=== PATIENT | male | born 1970 | race Caucasian/White ===

== ENCOUNTER → 2019-07-01 14:53 | Outpatient (CLI) | payer BC, SELFPAY ==
--- NOTE | ~2019-07-01 | MR_ITS ---
EXAMINATION: MR shoulder RT wo con DATE: 07/01/2019 15:53 INDICATION: Complete tear of right rotator cuff. Right biceps tendinitis. Right shoulder pain. TECHNIQUE: Magnetic resonance imaging (MRI) of the right shoulder was performed without intravenous c ontrast. Sequences included axial PD-weighted FS FSE, coronal oblique PD-weighted FS FSE and T2-weigh ramon FS FSE, and sagittal oblique T2-weighted FS FSE and T1-weighted FSE. COMPARISON: None. FINDINGS: Coracoacromial arch: The acromion undersurface is curved in morphology (type II). There is severe acromioclavicular joint osteoarthritis including inferiorly directed osteophytes. There is mild subacromial/subdeltoid bursit is. Rotator cuff: There is moderate supraspinatus tendinopathy and mild infraspinatus tendinopathy. Teres minor tendon is normal. There is mild subscapularis tendinopathy. No tear. There is no asymmetric fatty atrophy of the rotator cuff muscle bellies. Biceps tendon and glenoid labrum: Biceps tendon is in bicipital groove. There is mild intra-articular biceps tendinopathy. There is flu id in the biceps tendon sheath out of proportion to the joint fluid, consistent with tenosynovitis. T here is a tear of superior labrum from 2:00 to 9:00 (SLAP tear). Fluid: There is no glenohumeral joint effusion. Bones/cartilage: Humeral head cartilage is normal. Glenoid cartilage is normal. IMPRESSION: 1. Moderate rotator cuff tendinopathy. No tear. 2. SLAP tear. 3. Severe acromioclavicular joint osteoarthritis. 4. Mild subacromial/subdeltoid bursitis. 5. Mild intra-articular biceps tendinopathy. Mild biceps tenosynovitis. Reviewed, dictated and finalized at location A. H CLASSER
== END ==
PROVIDERS: PCP Internal Medicine
DX: M75.121 Complete rotator cuff tear or rupture of right shoulder, not specified as traumatic (principal); M75.21 Bicipital tendinitis, right shoulder; M19.011 Primary osteoarthritis, right shoulder; M75.51 Bursitis of right shoulder; S43.431A Superior glenoid labrum lesion of right shoulder, initial encounter; X58.XXXA Exposure to other specified factors, initial encounter
CPT/HCPCS: 73221

== ENCOUNTER → 2021-04-21 09:12 | Outpatient (CLI) | payer BC, SELFPAY ==
--- NOTE | ~2021-04-21 | MR_ITS ---
EXAMINATION: MR shoulder RT wo con DATE: 04/21/2021 10:47 INDICATION: Right shoulder impingement syndrome TECHNIQUE: Magnetic resonance imaging (MRI) of the right shoulder was performed without intravenous c ontrast. Sequences included axial PD-weighted FS FSE, coronal oblique PD-weighted FS FSE, coronal obl ique T2-weighted FS FSE, sagittal PD-weighted FS FSE, and sagittal T1-weighted SE. COMPARISON: 07/01/2019 FINDINGS: Coracoacromial arch: The acromion undersurface is normally curved in morphology (type I-II) with interval acromioplasty al norma the anterolateral margin of the acromion with release of the acromial attachment of the coracoacr omial ligament. Severe acromioclavicular osteoarthritis with interval cheilectomy of the previously n oted large inferiorly directed osteophytes along both the acromial and clavicular sides of the joint space. Persistent subarticular cystic changes at the cephalad aspect of the lateral head of the clavi chester. Rotator cuff: Slight interval progression of still moderate supraspinatus and mild infraspinatus tendinopathy which remain without discrete tear. There is suggestion of tiny suture anchor tracks along the lateral mar gin of the greater tuberosity near the junction of the anterior and middle facets which suggests prio r rotator cuff repair. The teres minor tendon is normal. There is also been progression of now modera te subscapularis tendinopathy without discrete tear. Normal rotator cuff muscle bulk and signal. Biceps tendon, glenoid labrum and glenohumeral cartilage: The long head of the biceps tendon can be followed cephalad to the cephalad aspect of the intertuberc ular groove but with no discernible intra-articular portion of the tendon suggesting interval either tear, tenotomy or potentially tenodesis. Correlate with surgical history. Extensive labral tear begin fredis superiorly at the 11:00 position of the posterior superior labrum and extending along the bottle packing machine cleaner ior inferior labrum to the 5:00 position anteroinferiorly. There is suggestion of a suture anchor sit e for prior labral repair at the 3:00 position of the glenoid labrum. The intervening anteroinferior labrum from the 3:00-5:00 position appears thickened with amorphous increased signal consistent with degeneration without a well-defined tear plane. The previously seen linear tear at the anterosuperior labrum is not appreciated on the current study which may be due to interval repair or debridement. T here is mild partial-thickness cartilage loss with smooth chondral surface and without degenerative s ubchondral changes along the cephalad aspect of the glenoid and inferomedial aspect of the humeral he ad. Fluid: Physiologic amount of fluid in the glenohumeral joint and biceps tendon sheath. No loose osteochondra l bodies. Small amount of fluid in the subacromial/subdeltoid bursa consistent with mild bursitis. Bones: Bone alignment is normal. No fracture or pathologic marrow replacing process. IMPRESSION: 1. Postoperative changes at the right shoulder consistent with prior acromioplasty with suggestion of prior anterior labral repair, rotator cuff repair with suture anchors along the greater tuberosity a nd possible bicipital tenotomy versus tenodesis. Correlate with details of prior surgery. 2. New versus progression of a large labral tear of the posterior superior posterior to anteroinferio r labrum. 3. Progression of now moderate subscapularis and supraspinatus and mild infraspinatus tendinopathy wi thout discrete tears. 4. Mild subacromial/subdeltoid bursitis. 5. Severe chromic clavicular osteoarthritis with likely cheilectomy of prior inferiorly directed oste ophytes. Reviewed, dictated and finalized at location H. TS DIRECTOR IMPRESSION: 1. Postoperati
== END ==
PROVIDERS: PCP Internal Medicine; Visit Provider Internal Medicine
DX: M75.41 Impingement syndrome of right shoulder (principal); Z98.890 Other specified postprocedural states; S43.431A Superior glenoid labrum lesion of right shoulder, initial encounter; M75.81 Other shoulder lesions, right shoulder; M75.51 Bursitis of right shoulder; M19.011 Primary osteoarthritis, right shoulder
CPT/HCPCS: 73221

== ENCOUNTER 2021-09-06 10:58 | Outpatient (CLI) | payer BC, SELFPAY ==
--- NOTE | ~2021-09-06 | CT_ITS ---
EXAMINATION: CT diagnostic chest w con DATE: 09/06/2021 11:25 INDICATION: Pulmonary nodule. History of smoking. TECHNIQUE: Computed tomography (CT) of the chest was performed with 75 CC Omnipaque 300 intravenous c ontrast. Automated exposure control and iterative reconstruction technique were employed. Exam dose: 793.59 mGy-cm total exam DLP. COMPARISON: 10/12/2011 PA and lateral chest FINDINGS: Normal heart size. No hilar or mediastinal mass lesion or lymphadenopathy. No thoracic aortic aneurys m or dissection. No apparent pulmonary embolism. No pericardial or pleural effusion. Mild discoid atelectasis or scarring of the lingula. No pulmonary infiltrate or consolidation. No amrita picious pulmonary mass lesion. There is fatty infiltration of the liver with minimal pericholecystic sparing. Included portions of the adrenal glands and upper abdominal structures are unremarkable. Multiple old healed left rib fractures. Degenerative change at the acromioclavicular and glenohumeral joints. Degenerative spurring of the thoracic spine. No suspicious osteolytic or osteoblastic lesions are noted. IMPRESSION: Mild discoid atelectasis or scarring of lingula; no pulmonary infiltrate or consolidatio n or suspicious pulmonary mass lesion Hepatic steatosis Reviewed, dictated and finalized at Location A. Reviewed, dictated and finalized at location B. IMPRESSION: Mild discoid atelectasis or scarring of lingula; no pulmonary infi ltrate or consolidation or suspicious pulmonary mass lesion Hepatic steatosis
[2021-09-06 11:15] LABS: Estimated Glomerular Filt Rate > 60
== END 2021-09-06 10:59 ==
PROVIDERS: PCP Physician Assistant Medical; Visit Provider Physician Assistant Medical
DX: R91.1 Solitary pulmonary nodule (principal); Z72.0 Tobacco use; K76.0 Fatty (change of) liver, not elsewhere classified
CPT/HCPCS: 71260; Q9967

== ENCOUNTER 2021-10-01 00:34 | Day surgery (SDC) | payer BC, SELFPAY ==
[2021-09-16 10:16] VITALS: BMI 40.6
[2021-10-01 06:48] VITALS: BP 153/88; PULSE 83; RESP 20; TEMP 36.2; O2SAT 96
[2021-10-01] MEDS: LACTATED RINGERS 1,000 ML 150 ML IV CONT (07:00)
[2021-10-01 07:09] LABS: Glucose Point of Care 188 mg/dl (65-105)
--- NOTE | 2021-10-01 07:45 | WPDGICN ---
Assessment and Plan Assessment and plan (1) Encounter for screening colonoscopy: Code(s): Z12.11 - Encounter for screening for malignant neoplasm of colon Status: Acute Assessment and Plan: Patient presents today for screening colonoscopy. He appears to be at average risk for colon polyps. GI Consult Note Consult date/time: 10/01/21 07:45 Reason for consult: Neoplasia screening. HPI: Taye Ellis is a 50 year old male Referred for neoplasia screening. Patient's current weight appetite and bowel movements are normal. He denies abdominal pain. Patient has had no bleeding. Family history is noncontributory. He has had previous orthopedic surgeries. Review of Systems Review of Systems: Noncontributory review of systems. [facility] Family History Family History (Updated 08/15/16 @ 13:50 by DOCTOR UNKNOWN) Other Diabetes mellitus Family history of allergic disorder Family history of malignant neoplasm Hypertension Social History Social History Smoking packs per day: 1.5 Smoking cigarettes per day: 30.0 Years smoked: 16 Smoking pack-years: 24.00 Smoking status: Former smoker Tobacco type: cigarettes Second hand tobacco smoke exposure: No Alcohol intake: current Living arrangements: with family Meds Home Medications and Allergies Home Medications Medication Instructions Recorded Confirmed Type glimepiride 4 mg tablet 4 mg PO DAILY 09/16/21 09/16/21 History levothyroxine 175 mcg tablet 175 mcg PO DAILY 09/16/21 09/16/21 History metformin 1,000 mg tablet 1,000 mg PO BID 09/16/21 09/16/21 History Allergies Allergy/AdvReac Type Severity Reaction Status Date / Time codeine Allergy Unknown Itching Verified 10/01/21 06:47 hydrocodone Allergy Unknown Itching Verified 10/01/21 06:47 oxycodone AdvReac Unknown ITCHING Verified 10/01/21 06:47 Vital Signs Vital Signs - 24 hr 10/01/21 06:48 Temperature 97.2 F L Pulse Rate 83 Respiratory Rate 20 Blood Pressure 153/88 H Pulse Oximetry 96 Oxygen Delivery Room Air Exam Narrative: Physical exam reveals patient be alert. Vital signs stable. HEENT exam is unremarkable. Patient is anicteric. Lungs are clear to auscultation and percussion. Heart is without murmur or extra sounds. Abdomen is obese. Bowel sounds are present soft nontender with no hepatosplenomegaly. Digital external rectal exam is normal.
--- NOTE | 2021-10-01 07:57 | WPDANESEPPF ---
Anes - Initial Pre Proc Eval Procedure: Operation Date: 10/01/21 08:00 Proposed Procedures p Screening Colonoscopy - Behzad Gillespie MD Date/Time: 10/01/21 07:57 Surgeon: Behzad Gillespie MD Pre Op Diagnosis: neoplasm screening Patient Data Age: 50 Gender: M Height: 1.91 m Weight: 150.4 kg Last Vital Signs Temp 97.2 F L 10/01/21 06:48 Pulse 83 10/01/21 06:48 Resp 20 10/01/21 06:48 BP 153/88 H 10/01/21 06:48 Pulse Ox 96 10/01/21 06:48 O2 Del Method Room Air 10/01/21 06:48 Allergies Allergy/AdvReac Type Severity Reaction Status Date / Time codeine Allergy Unknown Itching Verified 10/01/21 06:47 hydrocodone Allergy Unknown Itching Verified 10/01/21 06:47 oxycodone AdvReac Unknown ITCHING Verified 10/01/21 06:47 Home Medications Medication Instructions Recorded Confirmed Type glimepiride 4 mg tablet 4 mg PO DAILY 09/16/21 09/16/21 History levothyroxine 175 mcg tablet 175 mcg PO DAILY 09/16/21 09/16/21 History metformin 1,000 mg tablet 1,000 mg PO BID 09/16/21 09/16/21 History Laboratory Tests 10/01/21 07:03 POC Capillary Glucose 188 mg/dl H mg/dl (65-105) Patient hx anesthesia problems: none Family hx anesthesia problems: none Results Review: All pre-operative results and documents have been reviewed as part of the pre-operative evaluation. [facility] Family History Family History (Updated 08/15/16 @ 13:50 by DOCTOR UNKNOWN) Other Diabetes mellitus Family history of allergic disorder Family history of malignant neoplasm Hypertension Social History Social History Smoking packs per day: 1.5 Smoking cigarettes per day: 30.0 Years smoked: 16 Smoking pack-years: 24.00 Smoking status: Former smoker Tobacco type: cigarettes Second hand tobacco smoke exposure: No Alcohol intake: current Living arrangements: with family Anes - Eval Final PreProcedure Day of Procedure 10/01/21 07:57 Patient weight: morbidly obese Heart: regular rate and rhythm Lungs: clear to auscultation Airway: Mallampati scale class III Neurological: alert and oriented Last oral intake: >/= 8 hours ASA classification: III Emergent: no Anesthetic plan: proceed Anesthesia type and monitoring: general GIVS and standard monitoring Results Review: All pre-operative results and documents have been reviewed as part of the pre-operative evaluation. Informed Consent: The patient's anesthetic plan and its attendant risks and benefits were discussed with the patient/family/POA. Questions were solicited and answers provided to the satisfaction of the patient/family/POA.
[2021-10-01 08:18] VITALS: BP 134/84; PULSE 74; RESP 17; O2SAT 98
[2021-10-01 08:28] VITALS: BP 126/63; PULSE 75; RESP 18; O2SAT 98
[2021-10-01 08:38] VITALS: BP 131/94; PULSE 80; RESP 17; O2SAT 98
== END 2021-10-01 08:47 | disposition home or self-care (01) ==
PROVIDERS: PCP Physician Assistant Medical; Visit Provider Internal Medicine Gastroenterology
PROC: 0DJD8ZZ Inspection of Lower Intestinal Tract, Via Natural or Artificial Opening Endoscopic (ICD-10-PCS; CPT 45378; principal; 2021-10-01 08:00)
DX: Z12.11 Encounter for screening for malignant neoplasm of colon (principal); K57.32 Diverticulitis of large intestine without perforation or abscess without bleeding; Z87.891 Personal history of nicotine dependence; E66.01 Morbid (severe) obesity due to excess calories; Z68.41 Body mass index [BMI] 40.0-44.9, adult; E03.9 Hypothyroidism, unspecified; Z79.84 Long term (current) use of oral hypoglycemic drugs
CPT/HCPCS: 45378; 82948; J2704; J7120

== ENCOUNTER 2022-01-10 17:02 | Outpatient (CLI) | payer BC, SELFPAY ==
--- NOTE | ~2022-01-10 | MR_ITS ---
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 Sequences included coronal PD-weighted FSE, coronal PD-weighted FS FSE, sagittal T2-weighted FSE , sagittal PD-weighted FS FSE and axial PD weighted fat saturated FSE. COMPARISON: 01/17/2017 FINDINGS: Medial compartment: Unchanged longitudinal horizontal tear extending to the inferior articular surface near the free edge of the body and posterior horn of the medial meniscus. Shallow chondral ulceration along the anterio r weightbearing medial femoral condyle. Deeper fissuring without degenerative subchondral changes santiago ng the lateral side of the central weightbearing medial femoral condyle. Lateral compartment: Again seen is a discoid lateral meniscus without discrete tear. Articular cartilage is normal. Patellofemoral compartment: Shallow chondral fissuring at the cephalad aspect of the lateral patellar facet. Trochlear cartilage is normal. Ligaments and tendons: Anterior and posterior cruciate ligaments are normal. The medial collateral ligament and fibular maria esther ateral ligament complex are normal. No significant change in enthesopathy with small enthesophytes at the patellar and anterior tibial tubercle attachment of the distal quadriceps and distal patellar te ndons and without enthesophyte at the patellar insertion of the proximal patellar tendon. The visuali zed medial and lateral hamstring tendons as well as the iliotibial band are normal. Fluid: Physiologic amount of fluid in the joint space. No intra-articular loose osteochondral bodies identif ied. There are a few small loose osteochondral bodies within the popliteal recess. There is a large m ultiloculated ganglion cyst which appears to arise from the popliteal recess and extends caudally bet ween the proximal metaphyseal of the metadiaphyseal regions of the tibia and fibula. Osseous/other: Normal marrow signal. No fracture or pathologic marrow replacing process. Medial plical band which ex tends across the cephalad aspect of the medial rim of the medial trochlea. IMPRESSION: 1. Persistent longitudinal horizontal tear of the body and posterior horn of the medial meniscus. 2. Mild osteoarthritis with regions of moderate grade chondromalacia along the weightbearing medial f emoral condyle and at the lateral patellar facet. 3. 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 4. Large multilobulated ganglion cyst extending caudally from the popliteal recess. 5. Chronic mild enthesopathy of the quadriceps and patellar tendons. Reviewed, dictated and finalized at location A. IMPRESSION: 1. Persistent longitudinal horizontal tear of the body and posterior horn of th e medial meniscus. 2. Mild osteoarthritis with regions of moderate grade chondromalacia along the weightbearing medial femoral condyle and at the lateral patellar facet. 3. 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 4. Large multilobulated ganglion cyst extending caudally from the popliteal rec ess. 5. Chronic mild enthesopathy of the quadriceps and patellar tendons.
== END 2022-01-10 17:03 ==
PROVIDERS: PCP Internal Medicine; Visit Provider Orthopaedic Surgery
DX: M17.12 Unilateral primary osteoarthritis, left knee (principal); M71.21 Synovial cyst of popliteal space [Baker], right knee; S83.242A Other tear of medial meniscus, current injury, left knee, initial encounter; X58.XXXA Exposure to other specified factors, initial encounter
CPT/HCPCS: 73721

== ENCOUNTER → 2022-08-11 09:14 | Outpatient (CLI) | payer BC, SELFPAY ==
--- NOTE | ~2022-08-11 | CT_ITS ---
Clinical Indication: Lump in the left axilla CT Scan of the Chest with Contrast: Technique: Contiguous sections were acquired throughout the chest after intravenous administration of 75 cc of Omnipaque 350. Dose reduction technique was used on this scan by utilizing automated exposu re control and iterative reconstruction technique. The dose-length product (DLP) was 792.23 mGy-cm. COMPARISON: 09/06/2021 Findings: There is no evidence of any significant mediastinal, hilar or axillary lymphadenopathy. Mediastinal s oft tissues and vascular structures are unremarkable. There is no evidence of pleural or pericardial effusion. The lungs are clear. No pulmonary nodules or infiltrates are noted. Images through the upper abdomen reveal suspected diffuse fatty infiltration of the liver. Impression: No abnormal mass lesion seen in left axilla. Clear lungs. Probable fatty infiltration of liver. Reviewed, dictated and finalized at location . Impression: No abnormal mass lesion seen in left axilla. Clear lungs. Probable fatty infiltration of liver.
--- NOTE | ~2022-08-11 | MR_ITS ---
EXAMINATION: MR wrist RT wo con DATE: 08/11/2022 10:16 INDICATION: Right wrist pain. TECHNIQUE: Magnetic resonance imaging (MRI) of the wrist was performed without intravenous contrast. COMPARISON: Right wrist radiographs 07/19/2022 FINDINGS: Intrinsic ligaments: There are changes of prior sprains of scapholunate and lunotriquetral ligaments characterized by incr eased signal intensity. No full-thickness tear. Triangular fibrocartilage complex (TFCC): There is a partial tear of the proximal surface of triangular fibrocartilage. Extensor wrist: The extensor tendons are normal. Flexor wrist: The flexor tendons are normal. Median nerve is normal. Guyon's canal: The ulnar nerve is normal. Bones/other: Bone alignment is normal. No fracture. There is edema-like marrow signal intensity in lunate. There i s a 6 mm subchondral cyst in the distal radius at the lunate fossa. There is mild osteoarthritis of t riscaphe joint and first carpometacarpal joint. There is a 7 x 3 x 11 mm ganglion cyst palmar to radi al styloid. IMPRESSION: 1. Edema-like marrow signal intensity in lunate, which may be secondary to osteoarthritis, stress vishal ction, or osteonecrosis. 2. Mild polyarticular osteoarthritis. 3. Ganglion cyst palmar to radial styloid. Reviewed, dictated and finalized at location A. IMPRESSION: 1. Edema-like marrow signal intensity in lunate, which may be secondary to oste oarthritis, stress reaction, or osteonecrosis. 2. Mild polyarticular osteoarthritis. 3. Ganglion cyst palmar to radial styloid.
[2022-08-11 10:41] LABS: Estimated Glomerular Filt Rate > 60
== END ==
PROVIDERS: PCP Internal Medicine; Visit Provider Nurse Practitioner Family
DX: R22.30 Localized swelling, mass and lump, unspecified upper limb (principal); M67.431 Ganglion, right wrist; M15.9 Polyosteoarthritis, unspecified
CPT/HCPCS: 71260; 73221; Q9967

== ENCOUNTER 2022-11-21 10:25 | Outpatient (CLI) | payer BC, SELFPAY ==
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
== END 2022-11-21 10:26 ==
LOC: GOSHIMG 10:26
PROVIDERS: PCP Physician Assistant Medical; Visit Provider Nurse Practitioner Family
DX: R29.898 Other symptoms and signs involving the musculoskeletal system (principal); M19.011 Primary osteoarthritis, right shoulder; M75.101 Unspecified rotator cuff tear or rupture of right shoulder, not specified as traumatic
CPT/HCPCS: 73221

== ENCOUNTER 2023-03-15 12:11 | Outpatient (CLI) | payer BC, SELFPAY ==
--- NOTE | ~2023-03-15 | CT_ITS ---
EXAMINATION: CTA chest PE protocol DATE: 03/15/2023 12:54 INDICATION: Other forms of dyspnea. Chest pain. TECHNIQUE: Computed tomography angiography (CTA) of the chest was performed with 100 mL Omnipaque-350 intravenous contrast timed to evaluate the pulmonary arteries. Coronal maximum intensity projection 3D-reconstructions were created by the technologist. Automated exposure control and iterative reconst ruction technique were employed. The dose-length product was 1896.10 mGy-cm. COMPARISON: Chest CT 08/11/2022 FINDINGS: There is mild atelectasis bilaterally. No pleural effusion. The heart size is normal. No pe ricardial effusion. There is no pulmonary embolus. There is mild thoracic spondylosis. IMPRESSION: 1. No pulmonary embolus. Sensitivity is mildly decreased by motion artifact. Reviewed, dictated and finalized at location A. [employer]
[2023-03-15 12:46] LABS: Estimated Glomerular Filt Rate > 60
[2023-03-15 12:52] LABS: Basophils Absolute Auto 0.1 K/mm3 (0.0-0.1); Basophils Percent Auto 1.4 % (0.2-1.2); Eosinophils Absolute Auto 0.3 K/mm3 (0-0.3); Hematocrit 48.4 % (42.0-52.0); Hemoglobin 15.6 g/dL (14.0-18.0); Immature Granulocyte Absolute 0.02 K/mm3 (0.00-0.031); Immature Granulocyte Percent A 0.3 % (0-0.5); Lymphocytes Absolute Auto 2.07 K/mm3 (0.9-3.2); Lymphocytes Percent Auto 32.4 % (18.3-44.2); Mean Corpuscular HGB Conc 32.2 g/dl (32-36); Mean Corpuscular Hemoglobin 27.5 pg (26-34); Mean Corpuscular Volume 85.4 fl (80-100); Mean Platelet Volume 9.5 fl (7.4-10.4); Monocytes Absolute Auto 0.5 K/mm3 (0.1-0.6); Monocytes Percent Auto 8.3 % (2.6-8.5); Neutrophils Absolute Auto 3.4 K/mm3 (1.3-6.7); Neutrophils Percent Auto 52.6 % (45.5-73.1); Platelet Count Result 210 k/mm3 (150-375); Red Blood Count 5.67 M/mm3 (4.6-6.20); Red Cell Distribution Width 12.9 % (11.5-14.5); White Blood Count 6.4 K/mm3 (4.5-10.0)
[2023-03-15 13:03] LABS: Alanine Aminotransferase 53 U/L (6-50); Albumin Level 4.5 g/dL (3.5-5.1); Alkaline Phosphatase 58 U/L (38-126); Anion Gap 12 mmol/L (8-16); Aspartate Amino Transferase 48 U/L (17-59); Bilirubin,Total 0.7 mg/dL (0.2-1.3); Blood Urea Nitrogen 16 mg/dL (9-20); Calcium 9.3 mg/dL (8.4-10.2); Carbon Dioxide 25 mmol/L (22-30); Chloride 103 mmol/L (98-107); Estimated Glomerular Filt Rate > 60; Glucose 192 mg/dL (65-110); Sodium 140 mmol/L (137-145)
[2023-03-15 13:11] LABS: D Dimer 0.34 ug/mL (<0.48)
[2023-03-15 13:13] LABS: NT Pro B Type Natriuretic Pept < 20 pg/mL (19.9-100); Troponin I < 0.012 ng/mL (0.000-0.034)
== END 2023-03-15 12:12 | disposition home or self-care (01) ==
LOC: ANHIMG 12:12
PROVIDERS: PCP Physician Assistant Medical; Visit Provider Physician Assistant Medical
DX: R06.09 Other forms of dyspnea (principal); R07.9 Chest pain, unspecified
CPT/HCPCS: 71275; 80053; 83880; 84484; 85025; 85380; Q9967

== ENCOUNTER 2023-04-20 07:55 | Outpatient (CLI) | payer BC, SELFPAY ==
--- NOTE | 2023-04-25 14:19 | P.PCNPFT_ITS ---
PFT Procedure Performed PFT Procedure Performed Spirometry with Pre/Post Bronchodilator Plethysmography (Lung Vol) Diffusing Cap (DLCO) Flow Vol Loop PFT Interpretation DOS: 04/20/2023 REQUESTING: Izabel De Leon PA-C REASON FOR TESTING: dyspnea PULMONARY FUNCTION TESTS The repeatability of spirometry FEV1 maneuver is Grade B. The repeatability of spirometry FEV1 maneuver post bronchodilator is Grade C. The patient exhibited optimal effort and cooperation. Spirometry: Pre-bronchodilator FEV1 is 3.49 L, 78%, mildly decreased. Pre- bronchodilator FVC is 4.96 L, 85%, normal. FEV1/FVC is 70%, normal. After bronchodilator administration, there is a 14% drop in the FEV1, 3.0 L, 67% which is below normal. After bronchodilator administration, there was a 20% drop in the FVC, 3.95 L, 68% predicted. These are nonspecific responses to bronchodilator administration. The post bronchodilator FEV1/FVC is 76%, normal. Lung volumes: Total lung capacity 10.03 L, 125% predicted, elevated consistent with hyperinflation. The residual volume is 5.07 L, 213% predicted, elevated, consistent with air trapping. RV/TLC is 51%, elevated, consistent with air trapping. Diffusion: DLCO is 27.7, 86% predicted, normal. DLCO/VA is 5.31, 127% predicted, normal. Flow volume loop: Normal IMPRESSION: This study shows a mild obstructive ventilatory impairment with mild hyperinflation and severe air trapping, normal diffusion. The drop in airflow after bronchodilator may be a non-specific response. Clinical correlation recommended. Jaci are no prior studies for comparison. Trina Camejo MD
== END 2023-04-20 07:56 | disposition home or self-care (01) ==
LOC: ANHPFT 07:58
PROVIDERS: PCP Physician Assistant Medical; Visit Provider Physician Assistant Medical
DX: R06.09 Other forms of dyspnea (principal); R91.8 Other nonspecific abnormal finding of lung field
CPT/HCPCS: 94060; 94726; 94729

== ENCOUNTER 2023-05-05 11:51 | Observation (INO) | payer BC, SELFPAY ==
--- NOTE | ~2023-05-05 | XR_ITS ---
Clinical Indication: Chest pain PA and lateral views of the chest: Comparison: 03/15/2023 Findings: Stable linear scarring left lung base. The lungs are otherwise clear, without evidence of f ocal consolidation or pleural effusion. Cardiomediastinal silhouette is within normal limits. Bones and soft tissues are unremarkable. Impression: Stable linear scarring left lung base, otherwise clear lungs. Reviewed, dictated and finalized at location M. IFIED TRAVEL COUNSELOR Impression: Stable linear scarring left lung base, otherwise clear lungs.
--- NOTE | ~2023-05-05 | US_ITS ---
Limited Abdominal Sonogram: Real-time sonographic imaging of the right upper quadrant was performed. Clinical History: Pancolitis, gallbladder pathology Findings: The liver appears echogenic, with no evidence of mass lesion or bile duct dilatation. Main portal vein demonstrates normal direction of flow. The gallbladder is well distended, and appears no rmal with no evidence of gallstone or wall thickening. The common bile duct is not clearly visualized . The visualized pancreas, aorta, and IVC are unremarkable. Right kidney measures 11.9 cm in length, without evidence of hydronephrosis. Impression: Diffuse fatty infiltration of liver. Reviewed, dictated and finalized at location M. INE BUILDER Impression: Diffuse fatty infiltration of liver.
--- NOTE | ~2023-05-05 | NM_ITS ---
EXAMINATION: NM nya stress w perfusion DATE: 05/08/2023 11:50 INDICATION: Chest pain. TECHNIQUE: Rest images were obtained following intravenous administration of 9.441 mCi Tc99m tetrofos min (Myoview). The patient was infused intravenously with Lexiscan (regadenoson). Then, 29 mCi Tc99m tetrofosmin (Myoview) was administered intravenously, and stress images were obtained. Data was recon structed into short axis and horizontal and vertical long axis SPECT images. Gated SPECT images were also obtained. COMPARISON: Chest CT 03/15/2023 FINDINGS: There is no definite reversible or fixed perfusion abnormality to suggest ischemia or infar ction. There is no segmental wall motion abnormality. Left ventricular ejection fraction measures 6 1%. IMPRESSION: 1. No definite ischemia or infarct. 2. Normal left ventricular ejection fraction measuring 61%. Reviewed, dictated and finalized at location A. [employer]
--- NOTE | 2023-05-05 11:57 | ECG_ITS ---
Measurements Intervals [place] Rate: 75 P: 11 [place]: 148 QRS: 31 QRSD: 92 T: 48 QT: 363 QTc: 408 Interpretive Statements SINUS RHYTHM NORMAL ECG NO PREVIOUS ECG AVAILABLE FOR COMPARISON Electronically Signed On 05-05-2023 12:39:31 DIRECTOR OF AGRONOMY by Arvin Julio D.O.
[2023-05-05 12:12] LABS: Basophils Absolute Auto 0.1 K/mm3 (0.0-0.1); Basophils Percent Auto 1.1 % (0.2-1.2); Eosinophils Absolute Auto 0.2 K/mm3 (0-0.3); Eosinophils Percent Auto 3.2 % (0-4.4); Hematocrit 49.6 % (42.0-52.0); Hemoglobin 15.7 g/dL (14.0-18.0); Immature Granulocyte Absolute 0.02 K/mm3 (0.00-0.031); Immature Granulocyte Percent A 0.3 % (0-0.5); Lymphocytes Absolute Auto 1.71 K/mm3 (0.9-3.2); Lymphocytes Percent Auto 23.4 % (18.3-44.2); Mean Corpuscular HGB Conc 31.7 g/dl (32-36); Mean Corpuscular Hemoglobin 27.1 pg (26-34); Mean Corpuscular Volume 85.5 fl (80-100); Mean Platelet Volume 9.2 fl (7.4-10.4); Monocytes Absolute Auto 0.6 K/mm3 (0.1-0.6); Monocytes Percent Auto 8.8 % (2.6-8.5); Neutrophils Absolute Auto 4.6 K/mm3 (1.3-6.7); Neutrophils Percent Auto 63.2 % (45.5-73.1); Platelet Count Result 202 k/mm3 (150-375); Red Cell Distribution Width 13.4 % (11.5-14.5); White Blood Count 7.3 K/mm3 (4.5-10.0)
[2023-05-05 12:15] VITALS: BP 154/93; PULSE 73; RESP 16; TEMP 36.6; O2SAT 100
[2023-05-05 12:23] LABS: Alanine Aminotransferase 62 U/L (6-50); Albumin Level 4.1 g/dL (3.5-5.1); Alkaline Phosphatase 56 U/L (38-126); Anion Gap 10 mmol/L (8-16); Aspartate Amino Transferase 47 U/L (17-59); Bilirubin,Total 0.5 mg/dL (0.2-1.3); Blood Urea Nitrogen 14 mg/dL (9-20); Calcium 9.4 mg/dL (8.4-10.2); Carbon Dioxide 24 mmol/L (22-30); Chloride 103 mmol/L (98-107); Estimated Glomerular Filt Rate > 60; Glucose 181 mg/dL (65-110); Lipase 628 U/L (23-300); Sodium 137 mmol/L (137-145)
[2023-05-05 12:32] LABS: Prothrombin Time 13.1 Seconds (11.1-14.7)
[2023-05-05 12:33] LABS: Partial Thromboplastin Time 28.7 SECONDS (22.3-36.8); Troponin I < 0.012 ng/mL (0.000-0.034)
[2023-05-05 14:30] VITALS: BP 150/88; PULSE 72; RESP 18; TEMP 36.6; O2SAT 96
--- NOTE | 2023-05-05 14:39 | ECG_ITS ---
Measurements Intervals [place] Rate: 70 P: 42 [place]: 161 QRS: 36 QRSD: 99 T: 52 QT: 375 QTc: 405 Interpretive Statements SINUS RHYTHM NORMAL ECG COMPARED TO ECG 05/05/2023 12:00:08 NO SIGNIFICANT CHANGES Electronically Signed On 05-05-2023 15:24:28 [employer]IC[employer] PACK[employer] SEALER by Arvin Julio D.O.
--- NOTE | 2023-05-05 14:59 | ED.CHESTPAIN ---
HPI - Chest Pain General Chief Complaint: Chest Pain Stated Complaint: cp Time Seen by Provider: 05/05/23 14:42 History of Present Illness HPI narrative: Patient is a 52-year-old male who presents to the ER with reports of chest pain. Ongoing over the last 2 weeks. Worsening over the course of time. Occurs with any sort of exertion. Left-sided and then develops tightness going across entire chest that feels like a band. It is associated with dyspnea. Patient has known COPD and recently underwent PFT testing. Though he has been having shortness of breath for 6 months related to his lungs the chest pain is a new issue. He is scheduled for a stress test and echocardiogram next week. He was told by his PCP today that if he had recurrence of his chest pain he should come to the ER immediately. Patient is obese and diabetic. He has hyperlipidemia. Former smoker. Related Data Home Medications Medication Instructions Recorded Confirmed levothyroxine 175 mcg tablet 175 mcg PO DAILY 09/16/21 05/05/23 metformin 1,000 mg tablet 1,000 mg PO BID 09/16/21 05/05/23 Allergies Allergy/AdvReac Type Severity Reaction Status Date / Time codeine Allergy Unknown Itching Verified 05/05/23 16:57 hydrocodone Allergy Unknown Itching Verified 05/05/23 16:57 oxycodone AdvReac Unknown ITCHING Verified 05/05/23 16:57 Review of Systems Review of Systems: All systems reviewed & are unremarkable except as noted in HPI and below Constitutional: Constitutional: Denies chills, Denies fatigue and Denies fever(s) ENT: Denies nasal congestion and Denies sore throat Cardiovascular: Cardiovascular: Reports chest pain, Denies rapid heart rate and Reports radiating jaw, neck or arm pain Respiratory: Respiratory: Denies cough, Reports dyspnea and Denies wheezing Gastrointestinal: Gastrointestinal: Reports no additional gastrointestinal complaints Genitourinary: Genitourinary: Reports no additional male genitourinary complaints Musculoskeletal: Musculoskeletal: Reports no additional musculoskeletal complaints [facility] Past Medical History Medical History COPD (chronic obstructive pulmonary disease) Encounter for screening for malignant neoplasm of prostate Incisional hernia, without obstruction or gangrene Other fatigue Right groin pain Rotator cuff tear arthropathy of right shoulder Testicular hypofunction Torn rotator cuff Surgical History Surgical History H/O knee surgery Family History Family History Other Diabetes mellitus Family history of allergic disorder Family history of malignant neoplasm Hypertension Social History Social History Smoking packs per day: 1.5 Smoking cigarettes per day: 30.0 Years smoked: 16 Smoking pack-years: 24.00 Smoking status: Former smoker Tobacco type: cigarettes Second hand tobacco smoke exposure: No Alcohol intake: current Substance use: never Lack of Transportation: No Lack of Food: Never True Current Housing: I Have Housing Concerned About Future Housing: No Difficulty Paying Gas/Electric Bills: No Difficulty Paying for Meds: No Currently Unemployed: No Education: High School Diploma/GED Living arrangements: with family Occupation/Education: occupation Gender identity (if verbalized by the patient): Male Exam Narrative: GENERAL: Well-appearing, abuse, and in no acute distress. HEAD: Normocephalic, atraumatic. ENT: Mucous membranes moist. NECK: Supple. CHEST: Clear to auscultation. No respiratory distress. HEART: Regular rate and rhythm. Normal peripheral pulses. ABDOMEN: Soft, nontender, nondistended. EXTREMITIES: Normal range of motion. No edema. SKIN: Warm, dry, no rash. NEURO: Alert and oriented x3. PSYCH: Normal mood and affect.
[2023-05-05 15:08] LABS: Troponin I < 0.012 ng/mL (0.000-0.034)
--- NOTE | 2023-05-05 16:04 | PM.CNCAR ---
Assessment and Plan Assessment and plan (1) Chest pain: Code(s): R07.9 - Chest pain, unspecified Status: Acute Assessment and Plan: Could be musculoskeletal from fall/rib fractures. Thus far EKG and troponin x2 are normal. Await 3rd troponin. If negative then obtain nuclear stress test on Monday. Obtain echo. (2) Type 2 diabetes mellitus with other specified complication: Code(s): E11.69 - Type 2 diabetes mellitus with other specified complication Status: Acute Assessment and Plan: Managed as per hospitalist. (3) Mixed hyperlipidemia: Code(s): E78.2 - Mixed hyperlipidemia Status: Acute Assessment and Plan: Advise to maintain a low saturated fat diet. (4) Obesity: Code(s): E66.9 - Obesity, unspecified Status: Acute History of Present Illness History of Present Illness Consult date/time: 05/05/23 16:04 Reason For Visit: cp Narrative: 52 yr old man who is my regular cardiology patient and a patient of Izabel De Leon presents to ER for chest pain. He has a history of DM, dyslipidemia, COPD, remote smoking. Reports that in Jan 2023 he tripped and fell fracturing right sided ribs. Since then he states he can't catch his breath and has SOB. About 2 weeks ago he had some sharp left sided chest pains intermittently and worse with exertion walking just short distances. Previous to his fall he can walk a mile without any problems. Denies orthopnea, PND, edema, dizziness, palpitations. Cardiovascular Procedures Electrophysiology:: 12/05/22 EKG: Sinus rhythm, PAC. Review of Systems Review of Systems: All systems reviewed & are unremarkable except as noted in HPI and below Constitutional: Constitutional: Reports as per HPI, Denies chills and Denies fever(s) Cardiovascular: Cardiovascular: Reports as per HPI and Reports chest pain Respiratory: Respiratory: Reports as per HPI and Reports dyspnea Gastrointestinal: Gastrointestinal: Reports as per HPI and Denies abdominal pain Genitourinary: Genitourinary: Reports as per HPI and Denies dysuria Musculoskeletal: Musculoskeletal: Reports as per HPI Neurologic: Reports as per HPI, Denies dizziness and Denies syncope [facility] Past Medical History Medical History COPD (chronic obstructive pulmonary disease) Encounter for screening for malignant neoplasm of prostate Incisional hernia, without obstruction or gangrene Other fatigue Right groin pain Rotator cuff tear arthropathy of right shoulder Testicular hypofunction Torn rotator cuff Surgical History Surgical History H/O knee surgery Family History Family History Other Diabetes mellitus Family history of allergic disorder Family history of malignant neoplasm Hypertension Social History Social History Smoking packs per day: 1.5 Smoking cigarettes per day: 30.0 Years smoked: 16 Smoking pack-years: 24.00 Smoking status: Former smoker Tobacco type: cigarettes Second hand tobacco smoke exposure: No Alcohol intake: current Substance use: never Lack of Transportation: No Lack of Food: Never True Current Housing: I Have Housing Concerned About Future Housing: No Difficulty Paying Gas/Electric Bills: No Difficulty Paying for Meds: No Currently Unemployed: No Education: High School Diploma/GED Living arrangements: with family Occupation/Education: occupation Gender identity (if verbalized by the patient): Male Meds Home Medications and Allergies Home Medications Medication Instructions Recorded Confirmed Type levothyroxine 175 mcg tablet 175 mcg PO DAILY 09/16/21 05/05/23 History metformin 1,000 mg tablet 1,000 mg PO BID 09/16/21 05/05/23 History insulin degludec 100 unit/mL (3 26 unit (0.26 mL)
--- NOTE | 2023-05-05 17:56 | ADMGEN ---
This patient, Taye Ellis, was admitted to Medical Room 340-01. Patient/family oriented to hospital policies and general routines including ID bracelet, bed and alarms, visiting hours, pain management, procedures, bathroom and other care routines, personal items, smoking policy, room service/diet, and visiting hours. Information on how to activate the Rapid Response Team has been discussed. Patient/Family are encouraged to report perceived risks to care and to ask questions if they do not understand what they are told or what they should do.
[2023-05-05 18:05] VITALS: BMI 31.2
[2023-05-05 18:19] VITALS: BP 149/89; PULSE 72; RESP 22; TEMP 36.4; O2SAT 93
[2023-05-05 18:30] LABS: Troponin I < 0.012 ng/mL (0.000-0.034)
[2023-05-05 20:00] VITALS: PULSE 72
[2023-05-05] MEDS: LOSARTAN POTASSIUM 25 MG TABLET PO (20:42)
[2023-05-05 22:00] VITALS: BP 129/79; PULSE 68; RESP 18; TEMP 36.6; O2SAT 96
--- NOTE | 2023-05-05 22:41 | PM.IMHP ---
H&P: HPI History of Present Illness Date/Time: 05/05/23 22:41 Chief Complaint: Chest Pain Narrative: 52 y/o M presents here for CP with exertion with PMH of COPD, DM, hypothyroidism, AZIZA, dyslipidemia, and HTN. Patient reports for the past 2 weeks he has been experiencing left-sided chest pain with exertion. Describes the pain as left-sided and tight with associated shortness of breath. Does have mild dyspnea at baseline due to COPD. However has not previously chest pain associated with dyspnea. Denies any associated nausea, vomiting, diaphoresis, palpitations, or radiation of pain. Does have history of fall in January when he tumbled down a hill and landed on his side. Sought treatment on 03/15 with PCP, reported concerned that he had fractured ribs. CTA and CXR ordered. CXR showed multiple old healed left rib fractures as well as bilateral lower lung chronic discoid scarring. CTA negative for PE but showed healing fracture of the anterior right 6th rib with callus formation. Also started on Breztri inhaler. Later underwent PFT testing, not previously performed, on 04/25 which showed mild obstructed ventilatory impairment with mild hyperinflation and severe air trapping, normal diffusion. Followed up with his PCP today, 05/05, where he reported chest wall pain associated with his fractured ribs. Was instructed to seek emergency care if chest pain reoccurred/worsened. Presented later to the emergency department after this appointment. ED workup showed a normal WBC, normal HGB, unremarkable chemistries, ALT 62, negative tropes x3, and lipase 628. CXR showed stable linear scarring of the left lung base, otherwise clear lungs. Review of Systems Review of Systems: All systems reviewed & are unremarkable except as noted in HPI and below PMFSH Past Medical History Medical History COPD (chronic obstructive pulmonary disease) Hypothyroidism, unspecified Incisional hernia, without obstruction or gangrene Mixed hyperlipidemia Obesity Rotator cuff tear arthropathy of right shoulder Testicular hypofunction Type 2 diabetes mellitus with other specified complication Surgical History Surgical History H/O knee surgery Family History Family History Other Diabetes mellitus Family history of allergic disorder Family history of malignant neoplasm Hypertension Social History Social History Smoking packs per day: 1.5 Smoking cigarettes per day: 30.0 Years smoked: 16 Smoking pack-years: 24.00 Smoking status: Former smoker Second hand tobacco smoke exposure: No Alcohol intake: current Substance use: never Do You Feel Safe in your Home?: Yes Lack of Transportation: No Lack of Food: Never True Current Housing: I Have Housing Concerned About Future Housing: No Difficulty Paying Gas/Electric Bills: No Difficulty Paying for Meds: No Currently Unemployed: No Education: High School Diploma/GED Difficulty w/ Childcare or Family Care: No Living arrangements: with family Occupation/Education: occupation Gender identity (if verbalized by the patient): Male Spiritual care concerns: No Meds Home Medications and Allergies Home Medications Medication Instructions Recorded Confirmed Type levothyroxine 175 mcg tablet 175 mcg PO DAILY 09/16/21 05/05/23 History metformin 1,000 mg tablet 1,000 mg PO BID 09/16/21 05/05/23 History insulin degludec 100 unit/mL (3 26 unit (0.26 mL) subcut DAILY #15 03/03/23 05/05/23 Rx mL) subcutaneous pen (Tresiba mL FlexTouch U-100 insulin) budesonide 160 mcg-glycopyr 9 2 inh inhalation BID #10.7 grams 03/15/23 05/05/23 Rx mcg-formot 4.8 mcg/actuation HFA inhaler (Breztri Aerosphere) glimepiride 4 mg tablet 4 mg PO DAILY #90 tabs
[2023-05-06] VITALS (11 sets, daily range): BP systolic 111–156; BP diastolic 67–85; PULSE 61–89; RESP 16–17; TEMP 36.2–36.8; O2SAT 94–96
--- NOTE | 2023-05-06 | ECHO_ITS ---
Patient Info Name: Taye Ellis Age: 52 years : 1970 Gender: Male Ht: 75 in Wt: 350 lbs BSA: 2.97 m2 HR: 71 bpm BP: 194 / 71 mmHg Heart Rhythm: Sinus Rhythm Technical Quality: Good Exam Date: 05/06/2023 8:37 AM Exam Location: Echo Lab Patient Status: Outpatient Admit Date: 05/05/2023 Staff Ordering Physician: Arvin Julio DO Compounding Technician: April Marquez RDCS Attending Provider: Ashwin Minaya MD Referring Physician: Sumanth HICKS; Exam Type: CA echo doppler color flow Study Info Indications - cp Complete two-dimensional, color flow and Doppler transthoracic echocardiogram is performed. Summary 1. Complete two-dimensional, color flow and Doppler transthoracic echocardiogram is performed. 2. Left ventricular chamber dimension is normal. 3. Ventricular septum is sigmoid shaped. No LVOT obstruction. 4. Left ventricular systolic function is normal, estimated at 60-65%. 5. There is mild concentric increased left ventricular wall thickness. 6. The left ventricular diastolic function is grade I diastolic dysfunction. 7. E/e' 9 is minimally elevated. 8. Non-obstructive mild systolic anterior motion of the mitral anterior leaflet. 9. There is trace mitral valve regurgitation. 10. No pulmonary hypertension, estimated pulmonary arterial systolic pressure is 15 mmHg. Left Ventricle E/e' 9 is minimally elevated. Ventricular septum is sigmoid shaped. No LVOT obstruction. Left ventricular chamber dimension is normal. Left ventricular systolic function is normal, estimated at 60-65%. There is mild concentric increased left ventricular wall thickness. The left ventricular diastolic function is grade I diastolic dysfunction. Right Ventricle Right ventricular chamber dimension is normal. Right ventricular systolic function is normal. Left Atria Left atrial chamber dimension is normal. Right Atria Right atrial chamber dimension is normal. Aortic Valve The aortic valve is trileaflet. There is no aortic valve stenosis. There is no aortic valve regurgitation. Pulmonic Valve There is no pulmonic regurgitation. Mitral Valve Non-obstructive mild systolic anterior motion of the mitral anterior leaflet. There is no mitral valve stenosis. There is trace mitral valve regurgitation. Tricuspid Valve There is no tricuspid valve regurgitation. No pulmonary hypertension, estimated pulmonary arterial systolic pressure is 15 mmHg. Pericardium/Pleural There is no pericardial effusion. Inferior Vena Cava Normal inferior vena cava with >50% collapse upon inspiration consistent with normal right atrial pressure, 5 mmHg. Aorta The aortic root size at the sinus of Valsalva is normal. Left Ventricular Outflow Tract Name Value Normal LVOT 2D LVOT Diameter 2.2 cm LVOT Doppler LVOT Peak Gradient 3 mmHg LVOT Mean Gradient 2 mmHg LVOT VTI 25 cm LVOT VTI/AV VTI Ratio 0.9 LVOT Stroke Volume 93 ml LVOT CO 5.7 l/min LVOT CI 1.9 l/min/m2 Pulmonic Valve
[2023-05-06] MEDS: LEVOTHYROXINE SODIUM 100 MCG TABLET PO (05:50)
[2023-05-06] MEDS: LEVOTHYROXINE SODIUM 75 MCG TABLET PO (05:50)
[2023-05-06 06:22] LABS: Hematocrit 47.7 % (42.0-52.0); Hemoglobin 15.2 g/dL (14.0-18.0); Mean Corpuscular HGB Conc 31.9 g/dl (32-36); Mean Corpuscular Volume 84.9 fl (80-100); Mean Platelet Volume 9.2 fl (7.4-10.4); Platelet Count Result 192 k/mm3 (150-375); Red Blood Count 5.62 M/mm3 (4.6-6.20); Red Cell Distribution Width 13.2 % (11.5-14.5); White Blood Count 7.3 K/mm3 (4.5-10.0)
[2023-05-06 06:38] LABS: Alanine Aminotransferase 62 U/L (6-50); Albumin Level 3.8 g/dL (3.5-5.1); Alkaline Phosphatase 53 U/L (38-126); Anion Gap 7 mmol/L (8-16); Aspartate Amino Transferase 47 U/L (17-59); Bilirubin,Total 0.7 mg/dL (0.2-1.3); Blood Urea Nitrogen 12 mg/dL (9-20); Calcium 8.6 mg/dL (8.4-10.2); Carbon Dioxide 29 mmol/L (22-30); Chloride 102 mmol/L (98-107); Cholesterol 165 mg/dL (0-200); Estimated CRCL calculation 113 ml/min; Estimated Glomerular Filt Rate > 60; Glucose 137 mg/dL (65-110); HDL Direct 32 mg/dL; Potassium 3.9 mmol/L (3.4-5.0); Sodium 138 mmol/L (137-145); Triglycerides 126 mg/dL (<150)
[2023-05-06 06:49] LABS: LDL Cholesterol Direct 102 mg/dL
[2023-05-06] MEDS: FLUTICASONE/UMECLIDIN/VILANTER 100-62.5-25 MCG ELLIPTA 1 PUFF INHALATION (08:11)
--- NOTE | 2023-05-06 08:21 | PM.PNCARD ---
Progress Note: A&P Assessment and Plan (1) Chest pain: Code(s): R07.9 - Chest pain, unspecified Status: Acute Assessment and Plan: Could be musculoskeletal from fall/rib fractures. Thus far EKG and troponin x3 are normal. Obtain echo today. Obtain nuclear stress test on Monday. (2) Type 2 diabetes mellitus with other specified complication: Code(s): E11.69 - Type 2 diabetes mellitus with other specified complication Status: Acute Assessment and Plan: Managed as per hospitalist. (3) Mixed hyperlipidemia: Code(s): E78.2 - Mixed hyperlipidemia Status: Acute Assessment and Plan: Advise to maintain a low saturated fat diet. (4) Obesity: Code(s): E66.9 - Obesity, unspecified Status: Acute (5) Hypertension: Code(s): I10 - Essential (primary) hypertension Status: Acute Assessment and Plan: Stable. Started Losartan 25 mg daily. Subjective Date/time seen: 05/06/23 08:21 Interval history: Did not have any chest pains overnight at rest. No sob. No abdominal pain. Exam Const: General: cooperative, healthy appearing, comfortable and obese Nutritional Appearance: obese Orientation/consciousness: oriented to person, oriented to place and oriented to time Resp: Auscultation: clear to auscultation bilaterally, no crackles, no rales, no rhonchi and no wheezes Cardio: Rate: regular rate Rhythm: regular rhythm Heart sounds: no murmurs Peripheral pulses: dorsalis pedis present Neuro: General: oriented to person, oriented to place and oriented to time Extrem: Right lower extremity: no edema Left lower extremity: no edema Objective Data Vital Signs Vital Signs: Vital Signs - 24 hr 05/05/23 12:15 05/05/23 14:30 05/05/23 18:19 Temperature 97.8 F 97.8 F 97.6 F Pulse Rate 73 72 72 Respiratory Rate 16 18 22 H Blood Pressure 154/93 H 150/88 H 149/89 H Pulse Oximetry 100 96 93 Oxygen Delivery Room Air 05/05/23 18:45 05/05/23 20:00 05/05/23 22:00 Temperature 97.9 F Pulse Rate 72 68 Respiratory Rate 18 Blood Pressure 129/79 Pulse Oximetry 96 Oxygen Delivery Room Air 05/06/23 00:00 05/06/23 04:00 05/06/23 06:00 Temperature 98.2 F Pulse Rate 61 70 62 Respiratory Rate 16 Blood Pressure 111/67 Pulse Oximetry 94 Oxygen Delivery 05/06/23 08:12 Temperature Pulse Rate Respiratory Rate Blood Pressure Pulse Oximetry 95 Oxygen Delivery Room Air Intake/Output Intake/Output: Intake & Output 05/03/23 05/04/23 05/05/23 05/06/23 23:59 23:59 23:59 23:59 Intake Total 600 Balance 600 Meds/Results Medications: Active Medications Generic Name Dose Route Start Last Admin Trade Name Freq PRN Reason Stop Dose Admin Acetaminophen 650 mg 05/05/23 15:19 Acetaminophen 325 Mg Tablet PO Q4H PRN Mild Pain (1-3) or Fever Dextrose 12.5 gm 05/06/23 01:48 Dextrose 50% 25 Gm/50 Ml Syringe IV PUSH PRN PRN Hypoglycemia Protocol Enoxaparin Sodium 40 mg 05/06/23 09:00 Enoxaparin 40 Mg/0.4 Ml Syringe SUB-Q DAILY DORIAN Fluticasone/Umeclidinium/Vilanterol 1 puff 05/06/23 08:00 05/06/23 08:11 Fluticasone/Umeclidin/Vilanter 100-62.5-25 Mcg Ellipta INHALATION 1 puff DAILYRT DORIAN Administration Glimepiride 4 mg 05/06/23 08:00 Glimepiride 2 Mg Tablet PO DAILY@0800 DORIAN Glucagon 1 mg 05/06/23 01:48 Glucagon For Inj 1 Mg Vial IM PRN PRN Hypoglycemia Protocol Glucose 15 gm 05/06/23 01:48 Glucose Oral Gel 15 Gm Of Glucse In 37.5 Gm Tube PO PRN PRN Hypoglycemia Protocol Dextrose 1,000 mls @ 100 mls/hr 05/06/23 01:48 Dextrose 5% 1,000 Ml IVPB PRN PRN Hypoglycemia Protocol Insulin Aspart 2 - 5 units 05/06/23 08:00 Insulin Aspart (*Bkc) 100 Units/Ml SUB-Q TIDWM DORIAN Protocol Insulin Aspart 1 - 2 units 05/06/23 21:00 Insulin Aspart (*Bkc) 100 Units
[2023-05-06 08:35] LABS: Glucose Point of Care 151 mg/dl (65-105)
[2023-05-06 08:51] LABS: Free T4 Free Thyroxine Reflex 1.21 ng/dL (0.78-2.19)
[2023-05-06 09:46] LABS: Total Triiodothyronine (T3) 1.21 NG/ML (0.97-1.69)
[2023-05-06] MEDS: LOSARTAN POTASSIUM 25 MG TABLET PO (09:55)
[2023-05-06] MEDS: MONTELUKAST SODIUM 10 MG TABLET PO (09:55)
[2023-05-06] MEDS: PIOGLITAZONE HCL 15 MG TAB PO (09:55)
[2023-05-06] MEDS: GLIMEPIRIDE 2 MG TABLET 4 MG PO (09:56)
[2023-05-06] MEDS: ENOXAPARIN 40 MG/0.4 ML SYRINGE SUB-Q (09:57)
[2023-05-06] MEDS: INSULIN GLARGINE (LANTUS) 1,000 UNITS/10 ML VIAL 26 UNITS SUB-Q (09:58)
[2023-05-06 12:21] LABS: Glucose Point of Care 167 mg/dl (65-105)
--- NOTE | 2023-05-06 13:58 | PM.IMPN ---
Progress Note: A&P Assessment and Plan (1) Chest pain: Code(s): R07.9 - Chest pain, unspecified Status: Acute Assessment and Plan: Heart Score: 4. EKG: Sinus rhythm, normal EKG, when compared to prior no significant changes. Troponin: < 0.012 x3. Cardiology consulted, Sumanth ROBERTS. Obtain nuclear stress test on Monday 05/08 Echocardiogram performed revealing EF of 60-65%, grade 1 diastolic dysfunction and no pulmonary hypertension (2) COPD (chronic obstructive pulmonary disease): Code(s): J44.9 - Chronic obstructive pulmonary disease, unspecified Status: Acute Assessment and Plan: Continue home Singulair and Breztri inhaler. monitor O2 sat. (3) Elevated lipase: Code(s): R74.8 - Abnormal levels of other serum enzymes Status: Acute Assessment and Plan: Unclear etiology. Benign abdominal exam. No reported nausea, vomiting, diarrhea. AST, total bilirubin, alk-phos within normal limits. ALT mildly elevated at 62. Current ETOH use, did not quantify. Lipase elevated at 628. Right upper quadrant ultrasound pending (4) Type 2 diabetes mellitus with other specified complication: Code(s): E11.69 - Type 2 diabetes mellitus with other specified complication Status: Acute Assessment and Plan: Hypoglycemia protocol POC blood glucose ACHS home medication resumed/held - pioglitazone, glimepiride, and Tresiba. hold metformin, given contrast today. correct regimen ordered - low dose TIDWM and HS A1C between 8-9% on 03/15/23 (5) Mixed hyperlipidemia: Code(s): E78.2 - Mixed hyperlipidemia Status: Acute Assessment and Plan: Not on home statin. lipid panel within normal limits (6) Hypothyroidism, unspecified: Code(s): E03.9 - Hypothyroidism, unspecified Status: Acute Assessment and Plan: Continue home levothyroxine. Subjective Date/time seen: 05/06/23 13:58 Interval history: Patient doing good today. States he is not having any chest pain, shortness a, abdominal pain nausea or vomiting. He was up to walk in the halls and did so with ease. He had echocardiogram performed which did not show any significant findings. Right upper quadrant ultrasound pending. Plan for stress test on Monday. Objective Data Vital Signs Vital Signs: Vital Signs - 24 hr 05/05/23 14:30 05/05/23 18:19 05/05/23 18:45 Temperature 97.8 F 97.6 F Pulse Rate 72 72 Respiratory Rate 18 22 H Blood Pressure 150/88 H 149/89 H Pulse Oximetry 96 93 Oxygen Delivery Room Air 05/05/23 20:00 05/05/23 22:00 05/06/23 00:00 Temperature 97.9 F Pulse Rate 72 68 61 Respiratory Rate 18 Blood Pressure 129/79 Pulse Oximetry 96 Oxygen Delivery 05/06/23 04:00 05/06/23 06:00 05/06/23 08:12 Temperature 98.2 F Pulse Rate 70 62 Respiratory Rate 16 Blood Pressure 111/67 Pulse Oximetry 94 95 Oxygen Delivery Room Air 05/06/23 08:00 05/06/23 08:00 05/06/23 12:00 Temperature Pulse Rate 68 77 Respiratory Rate Blood Pressure Pulse Oximetry Oxygen Delivery Room Air Intake/Output Intake/Output: Intake & Output 05/03/23 05/04/23 05/05/23 05/06/23 23:59 23:59 23:59 23:59 Intake Total 1200 Balance 1200 Meds/Results Medications: Active Medications Generic Name Dose Route Start Last Admin Trade Name Freq PRN Reason Stop Dose Admin Acetaminophen 650 mg 05/05/23 15:19 Acetaminophen 325 Mg Tablet PO Q4H PRN Mild Pain (1-3) or Fever Dextrose 12.5 gm 05/06/23 01:48 Dextrose 50% 25 Gm/50 Ml Syringe IV PUSH PRN PRN Hypoglycemia Protocol Enoxaparin Sodium 40 mg 05/06/23 09:00 05/06/23 09:57 Enoxaparin 40 Mg/0.4 Ml Syringe SUB-Q 40 mg DAILY DORIAN Administration Fluticasone/Umeclidinium/Vilanterol 1 puff 05/06/23 08:00 05/06/23 08:11 Fluticasone/Umeclidin/Vilanter 100-62.5-25 Mcg
[2023-05-06 15:07] LABS: Lipase 883 U/L (23-300)
[2023-05-06 17:22] LABS: Glucose Point of Care 153 mg/dl (65-105)
[2023-05-06 20:41] LABS: Glucose Point of Care 196 mg/dl (65-105)
[2023-05-07] VITALS (9 sets, daily range): BP systolic 133–162; BP diastolic 76–92; PULSE 65–94; RESP 17–18; TEMP 36.3–36.8; O2SAT 96–98
[2023-05-07 06:13] LABS: Hematocrit 51.7 % (42.0-52.0); Hemoglobin 16.1 g/dL (14.0-18.0); Mean Corpuscular HGB Conc 31.1 g/dl (32-36); Mean Corpuscular Hemoglobin 26.9 pg (26-34); Mean Corpuscular Volume 86.3 fl (80-100); Mean Platelet Volume 9.3 fl (7.4-10.4); Platelet Count Result 226 k/mm3 (150-375); Red Blood Count 5.99 M/mm3 (4.6-6.20); Red Cell Distribution Width 13.3 % (11.5-14.5); White Blood Count 8.1 K/mm3 (4.5-10.0)
[2023-05-07] MEDS: LEVOTHYROXINE SODIUM 100 MCG TABLET PO (06:19)
[2023-05-07] MEDS: LEVOTHYROXINE SODIUM 75 MCG TABLET PO (06:19)
[2023-05-07 06:24] LABS: Alanine Aminotransferase 71 U/L (6-50); Albumin Level 4.1 g/dL (3.5-5.1); Alkaline Phosphatase 57 U/L (38-126); Anion Gap 9 mmol/L (8-16); Aspartate Amino Transferase 54 U/L (17-59); Blood Urea Nitrogen 13 mg/dL (9-20); Calcium 8.8 mg/dL (8.4-10.2); Carbon Dioxide 27 mmol/L (22-30); Chloride 102 mmol/L (98-107); Estimated CRCL calculation 113 ml/min; Estimated Glomerular Filt Rate > 60; Glucose 137 mg/dL (65-110); Lipase 350 U/L (23-300); Potassium 4.1 mmol/L (3.4-5.0); Sodium 138 mmol/L (137-145)
[2023-05-07 08:32] LABS: Glucose Point of Care 154 mg/dl (65-105)
[2023-05-07] MEDS: MONTELUKAST SODIUM 10 MG TABLET PO (08:51)
[2023-05-07] MEDS: PIOGLITAZONE HCL 15 MG TAB PO (08:51)
[2023-05-07] MEDS: LOSARTAN POTASSIUM 25 MG TABLET PO (08:51)
[2023-05-07] MEDS: ENOXAPARIN 40 MG/0.4 ML SYRINGE SUB-Q (08:51)
[2023-05-07] MEDS: GLIMEPIRIDE 2 MG TABLET 4 MG PO (08:51)
[2023-05-07] MEDS: INSULIN GLARGINE (LANTUS) 1,000 UNITS/10 ML VIAL 26 UNITS SUB-Q (08:54)
--- NOTE | 2023-05-07 09:11 | PM.PNCARD ---
Progress Note: A&P Assessment and Plan (1) Chest pain: Code(s): R07.9 - Chest pain, unspecified Status: Acute Assessment and Plan: Could be musculoskeletal from fall/rib fractures. EKG and troponin x3 are normal. 05/06/23 Echo: EF 60-65%, mild LVH, grade I diastolic dysfunction (E/e' 9), trace MR. Obtain Lexiscan myoview nuclear stress test tomorrow. (2) Type 2 diabetes mellitus with other specified complication: Code(s): E11.69 - Type 2 diabetes mellitus with other specified complication Status: Acute Assessment and Plan: Managed as per hospitalist. (3) Mixed hyperlipidemia: Code(s): E78.2 - Mixed hyperlipidemia Status: Acute Assessment and Plan: Advise to maintain a low saturated fat diet. (4) Obesity: Code(s): E66.9 - Obesity, unspecified Status: Acute (5) Hypertension: Code(s): I10 - Essential (primary) hypertension Status: Acute Assessment and Plan: Stable. Started Losartan 25 mg daily. Subjective Date/time seen: 05/07/23 09:11 Interval history: Did not have any chest pains overnight at rest. No sob. No abdominal pain. Exam Const: General: cooperative, healthy appearing, comfortable and obese Nutritional Appearance: obese Orientation/consciousness: oriented to person, oriented to place and oriented to time Resp: Auscultation: clear to auscultation bilaterally, no crackles, no rales, no rhonchi and no wheezes Cardio: Rate: regular rate Rhythm: regular rhythm Heart sounds: no murmurs Peripheral pulses: dorsalis pedis present Neuro: General: oriented to person, oriented to place and oriented to time Extrem: Right lower extremity: no edema Left lower extremity: no edema Objective Data Vital Signs Vital Signs: Vital Signs - 24 hr 05/06/23 12:00 05/06/23 14:48 05/06/23 16:00 Temperature 97.2 F L Pulse Rate 77 76 73 Respiratory Rate 17 Blood Pressure 156/85 H Pulse Oximetry 94 Oxygen Delivery 05/06/23 20:21 05/06/23 20:00 05/07/23 00:00 Temperature 97.6 F Pulse Rate 68 89 66 Respiratory Rate 16 Blood Pressure 127/72 Pulse Oximetry 96 Oxygen Delivery 05/06/23 20:15 05/07/23 04:00 05/07/23 05:36 Temperature 98.3 F Pulse Rate 67 65 Respiratory Rate 18 Blood Pressure 133/81 Pulse Oximetry 96 98 Oxygen Delivery Room Air Intake/Output Intake/Output: Intake & Output 05/04/23 05/05/23 05/06/23 05/07/23 23:59 23:59 23:59 23:59 Intake Total 2680 Balance 2680 Meds/Results Medications: Active Medications Generic Name Dose Route Start Last Admin Trade Name Freq PRN Reason Stop Dose Admin Acetaminophen 650 mg 05/05/23 15:19 Acetaminophen 325 Mg Tablet PO Q4H PRN Mild Pain (1-3) or Fever Dextrose 12.5 gm 05/06/23 01:48 Dextrose 50% 25 Gm/50 Ml Syringe IV PUSH PRN PRN Hypoglycemia Protocol Enoxaparin Sodium 40 mg 05/06/23 09:00 05/07/23 08:51 Enoxaparin 40 Mg/0.4 Ml Syringe SUB-Q 40 mg DAILY DORIAN Administration Fluticasone/Umeclidinium/Vilanterol 1 puff 05/06/23 08:00 05/06/23 08:11 Fluticasone/Umeclidin/Vilanter 100-62.5-25 Mcg Ellipta INHALATION 1 puff DAILYRT DORIAN Administration Glimepiride 4 mg 05/06/23 08:00 05/07/23 08:51 Glimepiride 2 Mg Tablet PO 4 mg DAILY@0800 DORIAN Administration Glucagon 1 mg 05/06/23 01:48 Glucagon For Inj 1 Mg Vial IM PRN PRN Hypoglycemia Protocol Glucose 15 gm 05/06/23 01:48 Glucose Oral Gel 15 Gm Of Glucse In 37.5 Gm Tube PO PRN PRN Hypoglycemia Protocol Dextrose 1,000 mls @ 100 mls/hr 05/06/23 01:48 Dextrose 5% 1,000 Ml IVPB PRN PRN Hypoglycemia Protocol Insulin Aspart 2 - 5 units 05/06/23 08:00 05/07/23 08:50 Insulin Aspart (*Bkc) 100 Units/Ml SUB-Q Not Given TIDWM DORIAN Protocol Insulin Aspart 1 - 2 units 05/06/23 21:00 05/06/23 20:32 Insulin Aspart (*Bk
[2023-05-07 11:59] LABS: Glucose Point of Care 140 mg/dl (65-105)
--- NOTE | 2023-05-07 14:48 | PM.IMPN ---
Progress Note: A&P Assessment and Plan (1) Chest pain: Code(s): R07.9 - Chest pain, unspecified Status: Acute Assessment and Plan: Heart Score: 4. EKG: Sinus rhythm, normal EKG, when compared to prior no significant changes. Troponin: < 0.012 x3. Cardiology consulted, Sumanth ROBERTS. Obtain nuclear stress test on Monday 05/08 Echocardiogram performed revealing EF of 60-65%, grade 1 diastolic dysfunction and no pulmonary hypertension (2) COPD (chronic obstructive pulmonary disease): Code(s): J44.9 - Chronic obstructive pulmonary disease, unspecified Status: Acute Assessment and Plan: Continue home Singulair and Breztri inhaler. monitor O2 sat. (3) Elevated lipase: Code(s): R74.8 - Abnormal levels of other serum enzymes Status: Acute Assessment and Plan: Unclear etiology. Benign abdominal exam. No reported nausea, vomiting, diarrhea. AST, total bilirubin, alk-phos within normal limits. ALT mildly elevated at 62. Current ETOH use, did not quantify. Lipase elevated at 628, 883, 350 Right upper quadrant ultrasound showing diffuse fatty liver. (4) Type 2 diabetes mellitus with other specified complication: Code(s): E11.69 - Type 2 diabetes mellitus with other specified complication Status: Acute Assessment and Plan: Hypoglycemia protocol POC blood glucose ACHS home medication resumed/held - pioglitazone, glimepiride, and Tresiba. hold metformin, given contrast today. correct regimen ordered - low dose TIDWM and HS A1C between 8-9% on 03/15/23 (5) Mixed hyperlipidemia: Code(s): E78.2 - Mixed hyperlipidemia Status: Acute Assessment and Plan: Not on home statin. lipid panel within normal limits (6) Hypothyroidism, unspecified: Code(s): E03.9 - Hypothyroidism, unspecified Status: Acute Assessment and Plan: Continue home levothyroxine. Subjective Date/time seen: 05/07/23 14:48 Interval history: patient feeling better today. Plan for stress test tomorrow. If patient gets cleared by Cardiology can likely discharge tomorrow. Exam Narrative: GENERAL: Comfortable, no acute distress HENMT: moist mucous membranes EYES: EOM intact b/l NECK: no lymphadenopathy RESPIRATORY: clear to auscultation CARDIO: RRR GI: soft, nontender, bowel sounds present SKIN: no rashes EXTREMITIES: no edema, redness or tenderness Objective Data Vital Signs Vital Signs: Vital Signs - 24 hr 05/06/23 16:00 05/06/23 20:21 05/06/23 20:00 Temperature 97.6 F Pulse Rate 73 68 89 Respiratory Rate 16 Blood Pressure 127/72 Pulse Oximetry 96 Oxygen Delivery 05/07/23 00:00 05/06/23 20:15 05/07/23 04:00 Temperature Pulse Rate 66 67 Respiratory Rate Blood Pressure Pulse Oximetry 96 Oxygen Delivery Room Air 05/07/23 05:36 05/07/23 08:00 05/07/23 08:00 Temperature 98.3 F Pulse Rate 65 66 Respiratory Rate 18 Blood Pressure 133/81 Pulse Oximetry 98 98 Oxygen Delivery Room Air 05/07/23 12:00 Temperature Pulse Rate 72 Respiratory Rate Blood Pressure Pulse Oximetry Oxygen Delivery Intake/Output Intake/Output: Intake & Output 05/04/23 05/05/23 05/06/23 05/07/23 23:59 23:59 23:59 23:59 Intake Total 2680 420 Balance 2680 420 Meds/Results Medications: Active Medications Generic Name Dose Route Start Last Admin Trade Name Freq PRN Reason Stop Dose Admin Acetaminophen 650 mg 05/05/23 15:19 Acetaminophen 325 Mg Tablet PO Q4H PRN Mild Pain (1-3) or Fever Dextrose 12.5 gm 05/06/23 01:48 Dextrose 50% 25 Gm/50 Ml Syringe IV PUSH PRN PRN Hypoglycemia Protocol Enoxaparin Sodium 40 mg 05/06/23 09:00 05/07/23 08:51 Enoxaparin 40 Mg/0.4 Ml Syringe SUB-Q 40 mg DAILY DORIAN Administration Fluticasone/Umeclidinium/Vilanterol 1 puff 05/06/23 0
[2023-05-07 17:13] LABS: Glucose Point of Care 176 mg/dl (65-105)
[2023-05-07] MEDS: INSULIN ASPART (*BKC) 100 UNITS/ML SUB-Q (21:02)
[2023-05-07 21:10] LABS: Glucose Point of Care 299 mg/dl (65-105)
[2023-05-08] VITALS: PULSE 92
--- NOTE | 2023-05-08 | EST_ITS ---
Patient Info Name: Taye Ellis Age: 52 years : 1970 Gender: Male Ht: 75 in Wt: 250 lbs BSA: 2.48 m2 Exam Date: 05/08/2023 11:06 AM Exam Location: [facility] Patient Status: Inpatient Admit Date: 05/05/2023 Staff Ordering Physician: Arvin Julio DO Attending Provider: Ashwin Minaya MD Exercise Technologist: Jennyfer Mackenzie RDCS Exercise Physician: Arvin Julio DO Exam Type: CA stress nya w NM Study Info Indications R07.9 - Chest pain, unspecified A regadenoson stress test was performed. Summary 1. 1. Negative lexiscan stress test for ischemic ST changes by ECG criteria. 2. 2. Stable hemodynamics throughout the test. 3. 3. Nuclear scan to follow and will be reported separately. Please correlate with it. 4. 4. Patient informed of the above results. Protocol: Lexiscan Stress ECG Details Stage: REST Duration (min): 2 min : 3 sec HR (bpm): 72 SBP (mmHg): 134 DBP (mmHg): 91 Stage: REST Duration (min): 4 min : 58 sec HR (bpm): 70 SBP (mmHg): 134 DBP (mmHg): 91 Stage: STAGE 1 Duration (min): 0 min : 59 sec HR (bpm): 75 SBP (mmHg): 127 DBP (mmHg): 91 Stage: RECOVERY Duration (min): 1 min : 0 sec HR (bpm): 95 SBP (mmHg): 127 DBP (mmHg): 91 Stage: RECOVERY Duration (min): 2 min : 0 sec HR (bpm): 94 SBP (mmHg): 127 DBP (mmHg): 91 Stage: RECOVERY Duration (min): 3 min : 0 sec HR (bpm): 93 SBP (mmHg): 142 DBP (mmHg): 84 Stage: RECOVERY Duration (min): 3 min : 35 sec HR (bpm): 88 SBP (mmHg): 142 DBP (mmHg): 84 Rest HR: 70 bpm Peak HR: 99 bpm Rest Sys BP: 134 mmHg Peak Sys BP: 142 mmHg Max Pred HR: 167 bpm % Max Pred HR: 59 % Target HR: 142 bpm Max RPP: 14,058 bpm*mmHg Termination Reason: Completed protocol Cardiac Symptoms: Shortness of breath Total Time: 1 min : 0 sec Rest [place] BP: 91 mmHg Peak [place] BP: 84 mmHg Total Dose: 0.4 mg Resting ECG Sinus rhythm. Stress ECG No ST changes. Arrhythmias None. Report Signatures
[2023-05-08 04:00] VITALS: PULSE 68
[2023-05-08 05:39] VITALS: BP 119/84; PULSE 81; RESP 18; TEMP 36.6; O2SAT 96
[2023-05-08 06:05] LABS: Hematocrit 48.5 % (42.0-52.0); Hemoglobin 15.2 g/dL (14.0-18.0); Mean Corpuscular HGB Conc 31.3 g/dl (32-36); Mean Corpuscular Hemoglobin 27.2 pg (26-34); Mean Corpuscular Volume 86.9 fl (80-100); Mean Platelet Volume 9.5 fl (7.4-10.4); Platelet Count Result 217 k/mm3 (150-375); Red Blood Count 5.58 M/mm3 (4.6-6.20); Red Cell Distribution Width 13.2 % (11.5-14.5); White Blood Count 6.7 K/mm3 (4.5-10.0)
[2023-05-08 06:07] LABS: Alanine Aminotransferase 60 U/L (6-50); Albumin Level 3.8 g/dL (3.5-5.1); Alkaline Phosphatase 57 U/L (38-126); Anion Gap 7 mmol/L (8-16); Aspartate Amino Transferase 37 U/L (17-59); Bilirubin,Total 0.6 mg/dL (0.2-1.3); Blood Urea Nitrogen 17 mg/dL (9-20); Calcium 8.6 mg/dL (8.4-10.2); Carbon Dioxide 25 mmol/L (22-30); Chloride 106 mmol/L (98-107); Estimated CRCL calculation 113 ml/min; Estimated Glomerular Filt Rate > 60; Glucose 167 mg/dL (65-110); Potassium 3.9 mmol/L (3.4-5.0); Sodium 138 mmol/L (137-145)
[2023-05-08 08:00] VITALS: PULSE 73
[2023-05-08 08:27] LABS: Glucose Point of Care 162 mg/dl (65-105)
--- NOTE | 2023-05-08 11:52 | PM.IMPN ---
Progress Note: A&P Assessment and Plan (1) Chest pain: Code(s): R07.9 - Chest pain, unspecified Status: Acute Assessment and Plan: Heart Score: 4. EKG: Sinus rhythm, normal EKG, when compared to prior no significant changes. Troponin: < 0.012 x3. Cardiology consulted, Sumanth ROBERTS. Obtain nuclear stress test on Monday 05/08 Echocardiogram performed revealing EF of 60-65%, grade 1 diastolic dysfunction and no pulmonary hypertension (2) COPD (chronic obstructive pulmonary disease): Code(s): J44.9 - Chronic obstructive pulmonary disease, unspecified Status: Acute Assessment and Plan: Continue home Singulair and Breztri inhaler. monitor O2 sat. (3) Elevated lipase: Code(s): R74.8 - Abnormal levels of other serum enzymes Status: Acute Assessment and Plan: Unclear etiology. Benign abdominal exam. No reported nausea, vomiting, diarrhea. AST, total bilirubin, alk-phos within normal limits. ALT mildly elevated at 62. Current ETOH use, did not quantify. Lipase elevated at 628, 883, 350 Right upper quadrant ultrasound showing diffuse fatty liver. (4) Type 2 diabetes mellitus with other specified complication: Code(s): E11.69 - Type 2 diabetes mellitus with other specified complication Status: Acute Assessment and Plan: Hypoglycemia protocol POC blood glucose ACHS home medication resumed/held - pioglitazone, glimepiride, and Tresiba. hold metformin, given contrast today. correct regimen ordered - low dose TIDWM and HS A1C between 8-9% on 03/15/23 (5) Mixed hyperlipidemia: Code(s): E78.2 - Mixed hyperlipidemia Status: Acute Assessment and Plan: Not on home statin. lipid panel within normal limits (6) Hypothyroidism, unspecified: Code(s): E03.9 - Hypothyroidism, unspecified Status: Acute Assessment and Plan: Continue home levothyroxine. Subjective Date/time seen: 05/08/23 11:52 Exam Narrative: GENERAL: Comfortable, no acute distress HENMT: moist mucous membranes EYES: EOM intact b/l NECK: no lymphadenopathy RESPIRATORY: clear to auscultation CARDIO: RRR GI: soft, nontender, bowel sounds present SKIN: no rashes EXTREMITIES: no edema, redness or tenderness Objective Data Vital Signs Vital Signs: Vital Signs - 24 hr 05/07/23 12:00 05/07/23 13:47 05/07/23 16:00 Temperature 97.9 F Pulse Rate 72 70 74 Respiratory Rate 17 Blood Pressure 133/76 Pulse Oximetry 98 Oxygen Delivery 05/07/23 21:12 05/07/23 23:11 05/07/23 20:00 Temperature 97.3 F L Pulse Rate 90 94 Respiratory Rate 18 Blood Pressure 162/92 H Pulse Oximetry 96 Oxygen Delivery Room Air 05/08/23 00:00 05/08/23 04:00 05/08/23 05:39 Temperature 97.9 F Pulse Rate 92 68 81 Respiratory Rate 18 Blood Pressure 119/84 Pulse Oximetry 96 Oxygen Delivery Intake/Output Intake/Output: Intake & Output 05/05/23 05/06/23 05/07/23 05/08/23 23:59 23:59 23:59 23:59 Intake Total 2680 1720 300 Balance 2680 1720 300 Meds/Results Medications: Active Medications Generic Name Dose Route Start Last Admin Trade Name Freq PRN Reason Stop Dose Admin Acetaminophen 650 mg 05/05/23 15:19 Acetaminophen 325 Mg Tablet PO Q4H PRN Mild Pain (1-3) or Fever Dextrose 12.5 gm 05/06/23 01:48 Dextrose 50% 25 Gm/50 Ml Syringe IV PUSH PRN PRN Hypoglycemia Protocol Enoxaparin Sodium 40 mg 05/06/23 09:00 05/07/23 08:51 Enoxaparin 40 Mg/0.4 Ml Syringe SUB-Q 40 mg DAILY DORIAN Administration Fluticasone/Umeclidinium/Vilanterol 1 puff 05/06/23 08:00 05/08/23 10:35 Fluticasone/Umeclidin/Vilanter 100-62.5-25 Mcg Ellipta INHALATION Not Given DAILYRT DORIAN Glimepiride 4 mg 05/06/23 08:00 05/07/23 08:51 Glimepiride 2 Mg Tablet PO 4 mg DAILY@0800 DORIAN Administration Glucagon 1
[2023-05-08 12:00] VITALS: PULSE 74
[2023-05-08 12:43] LABS: Glucose Point of Care 126 mg/dl (65-105)
[2023-05-08] MEDS: PIOGLITAZONE HCL 15 MG TAB PO (12:51)
[2023-05-08] MEDS: LOSARTAN POTASSIUM 25 MG TABLET PO (12:51)
[2023-05-08] MEDS: MONTELUKAST SODIUM 10 MG TABLET PO (12:51)
[2023-05-08] MEDS: GLIMEPIRIDE 2 MG TABLET 4 MG PO (12:51)
--- NOTE | 2023-05-08 14:45 | PM.DS ---
DS: Admitting Diagnosis Discharge Date 05/08/23 Admitting Diagnosis chest pain DS: Discharge Diagnosis Discharge Diagnosis (1) Chest pain: Code(s): R07.9 - Chest pain, unspecified Status: Acute (2) COPD (chronic obstructive pulmonary disease): Code(s): J44.9 - Chronic obstructive pulmonary disease, unspecified Status: Acute (3) Elevated lipase: Code(s): R74.8 - Abnormal levels of other serum enzymes Status: Acute (4) Type 2 diabetes mellitus with other specified complication: Code(s): E11.69 - Type 2 diabetes mellitus with other specified complication Status: Acute (5) Mixed hyperlipidemia: Code(s): E78.2 - Mixed hyperlipidemia Status: Acute (6) Hypothyroidism, unspecified: Code(s): E03.9 - Hypothyroidism, unspecified Status: Acute DS: Summary Hospital Course Hospital Course: this is a 52-year-old patient with a past medical history of COPD, diabetes, hypothyroidism, AZIZA, dyslipidemia and hypertension the before to the ED on 05/05/2023 due to left-sided chest pain with exertion. Patient had chest pain workup in the ED.?CXR showed multiple old healed left rib fractures as well as bilateral lower lung chronic discoid scarring.? CTA negative for PE but showed healing fracture of the anterior right 6th rib with callus formation.??Followed up with his PCP on 05/05, where he reported chest wall pain associated with his fractured ribs.? Was instructed to seek emergency care if chest pain reoccurred/worsened.? Presented later to the emergency department after this appointment. ED workup showed a normal WBC, normal HGB, unremarkable chemistries, ALT 62, negative tropes x3, and lipase 628. cardiology was consulted and recommended a stress test to perform. Patient stayed in the hospital until this testing was available. It which is tests showing negative Lexiscan stress test for ischemic ST changes by ECG criteria. Patient dressings by Cardiology for discharge to follow-up with them as an outpatient. Labs and vitals are stable he is medically cleared for discharge at this time. Time Spent with Patient Time attestation: Total time spent providing and/or coordinating discharge services: Exam Narrative: GENERAL: Comfortable, no acute distress HENMT: moist mucous membranes EYES: EOM intact b/l NECK: no lymphadenopathy RESPIRATORY: clear to auscultation CARDIO: RRR GI: soft, nontender, bowel sounds present SKIN: no rashes EXTREMITIES: no edema, redness or tenderness DS: Data Data Completed and Pending Labs on day of discharge: Labs from last 24 hours 05/08/23 05/08/23 05/08/23 12:40 08:09 05:20 WBC 6.7 RBC 5.58 Hgb 15.2 Hct 48.5 MCV 86.9 MCH 27.2 MCHC 31.3 L RDW 13.2 Plt Count 217 MPV 9.5 Sodium 138 Potassium 3.9 Chloride 106 Carbon Dioxide 25 Anion Gap 7 L BUN 17 Creatinine 0.90 Estim Creat Clear Calc 113 Estimated GFR > 60 Glucose 167 H POC Capillary Glucose 126 H 162 H Calcium 8.6 Total Bilirubin 0.6 AST 37 ALT 60 H Alkaline Phosphatase 57 Total Protein 7.0 Albumin 3.8 05/07/23 05/07/23 21:00 17:10 WBC RBC Hgb Hct MCV MCH MCHC RDW Plt Count MPV Sodium Potassium Chloride Carbon Dioxide Anion Gap BUN Creatinine Estim Creat Clear Calc Estimated GFR Glucose POC Capillary Glucose 299 H 176 H Calcium Total Bilirubin AST ALT Alkaline Phosphatase Total Protein Albumin Discharge Plan Discharge Consulting providers: Arvin Julio Discharging Clinician: Deana Porter Patient Disposition: Home, Self-Care Activity: as tolerated Diet: heart healthy Discharge Instructions: Keep your regularly scheduled follow-up with Dr. Julio Discharge disposition: Take medications as prescribed Monitor blood pressures Avoid social areas, you wear a mask when in
== END 2023-05-08 15:10 | disposition home or self-care (01) ==
LOC: ANHED 15:18 → ANH3MED 17:37
PROVIDERS: Internal Medicine Critical Care Medicine; Student in an Organized Health Care Education/Training Program; Admitting Provider Hospitalist; Emergency Provider Emergency Medicine; PCP Physician Assistant Medical; Visit Provider Hospitalist
DX: R07.9 Chest pain, unspecified (principal); J44.9 Chronic obstructive pulmonary disease, unspecified; R74.8 Abnormal levels of other serum enzymes; E11.69 Type 2 diabetes mellitus with other specified complication; E78.2 Mixed hyperlipidemia; E03.9 Hypothyroidism, unspecified; K76.0 Fatty (change of) liver, not elsewhere classified; J98.4 Other disorders of lung; E66.9 Obesity, unspecified; I10 Essential (primary) hypertension; G47.33 Obstructive sleep apnea (adult) (pediatric); Z68.31 Body mass index [BMI] 31.0-31.9, adult; Z87.891 Personal history of nicotine dependence; F10.90 Alcohol use, unspecified, uncomplicated; Z79.4 Long term (current) use of insulin; Z79.84 Long term (current) use of oral hypoglycemic drugs; Z79.51 Long term (current) use of inhaled steroids; Z79.899 Other long term (current) drug therapy
CPT/HCPCS: 36415; 71046; 76705; 78452; 80053; 80061; 82948; 83690; 84439; 84443; 84480; 84484; 85025; 85027; 85610; 85730; 93005; 93017; 93306; 94640; 99285; A9270; A9502; G0378; J1650; J1815; J2785

== ENCOUNTER 2023-05-25 10:25 | Outpatient (CLI) | payer BC, SELFPAY ==
[2023-05-25 11:00] LABS: CRP < 0.5 mg/dL (<1.0); Creatine Kinase 141 U/L (55-170)
== END 2023-05-25 10:26 | disposition home or self-care (01) ==
LOC: ANHLAB 10:26
PROVIDERS: PCP Physician Assistant Medical; Visit Provider Internal Medicine Pulmonary Disease
DX: R06.09 Other forms of dyspnea (principal)
CPT/HCPCS: 36415; 82550; 86140

== ENCOUNTER 2023-06-19 08:03 | Outpatient (CLI) | payer BC, SELFPAY ==
--- NOTE | 2023-06-19 12:57 | WPDPFTINT ---
PFT Procedure Performed PFT Procedure Performed Spirometry with Pre/Post Bronchodilator Plethysmography (Lung Vol) Diffusing Cap (DLCO) Flow Vol Loop PFT Interpretation Lung volumes were measured with the body plethysmography method. The diminished expiratory reserve volume is related to obesity. The remaining lung volumes are unremarkable. Spirometry showed diminished expiratory flow rates and a normal FEV1 to FVC ratio of 73%. Following administration of a bronchodilator there was no significant increase in expiratory flow rates. Lung diffusion capacity is within the normal range at 79% predicted. The diminished expiratory flow rates in conjunction with a normal FEV1 to FVC ratio and a normal total lung capacity align with a non-specific pattern. No previous pulmonary function testing is available. Impression: Nonspecific pattern. Lung diffusion capacity within the normal range.
--- NOTE | 2023-06-19 13:03 | WPDSIXMINUTE ---
Six Minute Walk Procedure Procedure Performed Pulmonary Stress Test (6 min walk) Six Minute Walk Six Minute Walk: This 6 minute walk test was conducted with the patient breathing ambient air. The pre walk baseline oxyhemoglobin saturation was 94%. The patient walked 366 m with no stops during testing. During the walk the oxyhemoglobin saturation remained in the range of 93%-95%. Impression: No evidence of oxyhemoglobin desaturation on this testing.
== END 2023-06-19 08:04 | disposition home or self-care (01) ==
LOC: ANHPFT 08:07
PROVIDERS: PCP Physician Assistant Medical; Visit Provider Internal Medicine Pulmonary Disease
DX: R06.09 Other forms of dyspnea (principal); Z87.891 Personal history of nicotine dependence
CPT/HCPCS: 94060; 94618; 94726; 94729

== ENCOUNTER 2025-02-11 08:45 | Outpatient (RCR) | payer OTHER, SELFPAY ==
--- NOTE | 2025-01-01 11:11 | PTOPEVAL1 ---
Assessment and note entered by Vanda Fernandez, PT Evaluation Information Assessment Status Evaluation Diagnosis M25.562, M25.552, M54.10 ICD-10 Condition Codes (PT) Pain in left hip M25.552,Pain in left knee M25.562 ,Weakness R53.1 Other ICD-10 Condition Codes ( Radiculopathy site unspecified PT) Subjective Information Tingling in left leg with crossing legs started 10 months ago recently was squatted down and had a left knee pop with intense pain. Was using a cane and brace for the knee and this helped. 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 Pt reports for his back hasn't bothered him in a long time other than just stiff and achy time to time Saw his PCP last week, had already been getting better. Was sitting and swinging legs, noted a pop and had a immediate reduction in pain and tingling. Still has difficulty with crossing legs. Has been taking it easy at work but is going to get back to inspections. Had been using Ibuprofen and Tylenol a lot. Tingling would go down back of left leg and sometimes the side. Still has some difficulty with uneven surfaces. Reported Pain Level Pain Score 0,2: Self Report Assessment PT Clinical Summary Pt presents with h/o N/T into LLE with crossing his legs, and recently had an incident in which his left knee popped and caused intense pain. Pt shows weakness LLE compared to RLE, (+) neural tension LLE, and laterally deviated patella LLE. All other special testing for anatomical deficits for knee were negative. Left hip weakness and flexibility deficits appear to be reason for radicular symptoms as well as likely factor in left knee incident. Pt will benefit from physical therapy to address flexibility, ROM, and strength, to improve stability, alignment, and reduce pain and symptoms to return to high level activities as in his PLOF. Plan of Care Interventions Electrical Stimulation,Hot Pack/Cold Pack,Manual Therapy,Mechanical Traction,Neuro Re-education, Patient/Caregiver Education,Therapeutic Activities ,Therapeutic Exercise,Self-Care/Home Management, Ultrasound,Other Other Interventions Bracing, taping PT Services Indicated Yes Treatment Frequency and 1-2x weekly x 10 visits Duration These treatments will address the objective and functional deficits as defined above. The patient will be advanced safely and appropriately in order for the patient to progress towards his/her prior level of function. Additional exercises will be introduced and as well as a comprehensive home exercise program upon discharge, if needed, ?to ensure carryover of functional gains achieved in the clinic. This treatment plan has been reviewed and agreement upon by the patient.
--- NOTE | 2025-01-01 11:11 | OPREHPOC ---
Outpatient Therapy Plan of Care This is a Multidisciplinary Plan of Care that may contain components documented by all disciplines (PT, OT, and ST.) PT Problem 1 PT Problem #1 Knowledge Deficit PT Goal 1 Goal / Goal Update Pt will be independent in HEP Pt will verbalize understanding of diagnosis and prognosis PT Problem 2 PT Problem #2 Pain PT Goal 1 Goal / Goal Update Pt will report lowest pain rating at 0/10 in knee and hip to show improvement in overall discomfort Target Visit 5 PT Goal 2 Goal / Goal Update Pt will report resolution of pain to return to PLOF Target Visit 10 PT Problem 3 PT Problem #3 Impaired Strength PT Goal 1 Goal / Goal Update Pt will demonstrate equal strength LLE to RLE in hip musculature Target Visit 5 PT Goal 2 Goal / Goal Update Pt will demonstrate equal strength LLE to RLE in knee musculature Target Visit 10 PT Problem 4 PT Problem #4 Impaired Sensation PT Goal 1 Goal / Goal Update Pt will report resolution of N/T sensations with crossing LLE Target Visit 10
--- NOTE | 2025-02-11 09:34 | PTOPDC ---
Assessment and note entered by Vanda Fernandez, PT Evaluation Information Assessment Status Discharge Diagnosis M25.562, M25.552, M54.10 ICD-10 Condition Codes (PT) Pain in left hip M25.552,Pain in left knee M25.562 ,Weakness R53.1 Other ICD-10 Condition Codes ( Radiculopathy site unspecified PT) Subjective Information Pt reports tingling in the left leg has resolved. Pt reports walking on uneven surfaces is going real good. States is feeling real good today. Perceived improvement 100% Reported Pain Level Pain Score 0,0: Self Report Assessment PT Clinical Summary Pt attended therapy consistently for pain in left knee, left hip, and tingling. Pt reports today feeling 100% improved with highest pain level reducing from 9/10 to 1/10 which he has reported previously is his normal arthritis pain. Pt reports he is able to perform all work duties as needed, and has shown good form and understanding of his HEP. Pt has met all goals with exception of complete resolution of pain. Thus patient is being discharged from therapy services for completion of POC. Plan of Care PT Services Indicated No
== END 2025-02-11 10:20 | disposition home or self-care (01) ==
LOC: ANHHIPT 08:45
PROVIDERS: PCP Physician Assistant Medical; Visit Provider Physician Assistant Medical
DX: M25.562 Pain in left knee (principal); M25.552 Pain in left hip; M54.10 Radiculopathy, site unspecified
CPT/HCPCS: 97014; 97110; 97162; 97530; 97750; G0283